=== PATIENT | female | born 1950 | race Caucasian/White ===

== ENCOUNTER 2021-04-21 10:03 | Emergency (ER) | payer MEDICARE, SELFPAY ==
--- NOTE | ~2021-04-21 | XR_ITS ---
EXAMINATION: XR chest 1V portable DATE: 04/21/2021 10:41 INDICATION: Abdominal pain TECHNIQUE: frontal view of the chest was obtained. COMPARISON: None FINDINGS: Biapical pleural-parenchymal scarring. Small calcified nodule in the lateral left lower lung zone con sistent with old granulomatous disease. No other airspace opacities, pulmonary edema, pleural effusio n or pneumothorax. The cardiomediastinal silhouette is normal. Mild thoracic levocurvature. IMPRESSION: 1. Biapical pleural-parenchymal scarring. No acute cardiopulmonary disease. Reviewed, dictated and finalized at location A. [employer]
--- NOTE | ~2021-04-21 | CT_ITS ---
EXAMINATION: CT abdomen pelvis w con EXAM DATE: 04/21/2021 11:27 INDICATION: Right lower quadrant pain. Nausea and vomiting. TECHNIQUE: Spiral CT of the abdomen and pelvis was performed following intravenous injection of 100 m L Omnipaque 350. Axial, coronal and sagittal images of the abdomen and pelvis were reviewed. The do se-length product (DLP) for this examination was 737.40 mGy-cm. The exposure was tailored according to patient size (auto mA exposure control), and iterative reconstruction (ASIR) was used as additiona l dose reduction technique. There is no prior study for comparison. FINDINGS: The liver, spleen, adrenal glands and pancreas are unremarkable. Gallbladder is unremarkab le. No biliary obstruction. Portal and splenic veins are patent. Kidneys enhance symmetrically. T here is no hydronephrosis. The uterus is not identified and has likely been surgically resected. T he bladder is unremarkable. There is no retroperitoneal or pelvic lymphadenopathy. There is mild s cattered arteriosclerotic disease. There is moderate sigmoid colonic diverticulosis. Moderate amount of perisigmoid inflammation and rec tosigmoid wall edema, could be acute uncomplicated diverticulitis and/or colitis. No perforation or a bscess. Appendix not identified. The stomach and small bowel are unremarkable. There is expected jimmie unt of colonic stool. No free intraperitoneal gas. The heart is normal in size. There are no per icardial or pleural effusions. The lung bases are unremarkable. There are no osteoblastic or osteol ytic lesions identified. Mild lumbar levoscoliosis. IMPRESSION: 1. Acute uncomplicated sigmoid diverticulitis and/or colitis. Reviewed, dictated and finalized at location A. [employer]
[2021-04-21 10:09] VITALS: BP 141/66; PULSE 70; RESP 16; TEMP 36.7; O2SAT 98
[2021-04-21 10:50] LABS: Basophils Absolute Auto 0.1 K/mm3 (0.0-0.1); Basophils Percent Auto 1.1 % (0.2-1.2); Eosinophils Absolute Auto 0.2 K/mm3 (0-0.3); Eosinophils Percent Auto 2.6 % (0-4.4); Hematocrit 38.7 % (37.0-47.0); Hemoglobin 13.1 g/dL (12.0-15.0); Immature Granulocyte Absolute 0.02 K/mm3 (0.00-0.031); Immature Granulocyte Percent A 0.2 % (0-0.5); Lymphocytes Absolute Auto 1.71 K/mm3 (0.9-3.2); Lymphocytes Percent Auto 20.4 % (18.3-44.2); Mean Corpuscular HGB Conc 33.9 g/dl (32-36); Mean Corpuscular Hemoglobin 30.8 pg (26-34); Mean Corpuscular Volume 91.1 fl (80-100); Mean Platelet Volume 11.6 fl (7.4-10.4); Monocytes Absolute Auto 0.7 K/mm3 (0.1-0.6); Monocytes Percent Auto 7.9 % (2.6-8.5); Neutrophils Absolute Auto 5.7 K/mm3 (1.3-6.7); Neutrophils Percent Auto 67.8 % (45.5-73.1); Platelet Count Result 246 k/mm3 (150-375); Red Blood Count 4.25 M/mm3 (4.2-5.4); Red Cell Distribution Width 13.6 % (11.5-14.5); White Blood Count 8.4 K/mm3 (4.5-10.0)
[2021-04-21] MEDS: ONDANSETRON INJ 4 MG/2 ML VIAL IV PUSH (10:50)
[2021-04-21] MEDS: SODIUM CHLORIDE 0.9% IV 1,000 ML 999 ML IV CONT (10:50)
[2021-04-21] MEDS: diphenhydrAMINE HCl INJ 50 MG/ML VIAL 25 MG IV PUSH (10:50)
[2021-04-21 10:52] LABS: Add Urine Microscopic? NO; Appearance Urine Clear (Clear); Bilirubin Urine Negative (Negative); Blood Urine Negative (Negative); Color Urine Yellow (Yellow); Glucose Urine UA Negative (Negative); Ketones Urine Negative (Negative); Leukocyte Esterase Ur Negative LEU/UL (Negative); Nitrate Urine Negative (Negative); Protein Urine Negative (Negative); Specific Grav Ur 1.013 (1.001-1.035); Urobilinogen Urine Negative mg/dL (<2.0)
[2021-04-21 10:58] LABS: Alanine Aminotransferase 19 U/L (4-35); Albumin Level 4.3 g/dL (3.5-5.1); Alkaline Phosphatase 89 U/L (38-126); Anion Gap 9 mmol/L (8-16); Aspartate Amino Transferase 31 U/L (14-36); Bilirubin,Total 0.5 mg/dL (0.2-1.3); Blood Urea Nitrogen 19 mg/dL (7-17); Calcium 9.1 mg/dL (8.4-10.2); Carbon Dioxide 27 mmol/L (22-30); Chloride 100 mmol/L (98-107); Estimated CRCL calculation 65 ml/min; Estimated Glomerular Filt Rate > 60; Glucose 102 mg/dL (65-110); Lipase 81 U/L (23-300); Potassium 4.1 mmol/L (3.4-5.0); Sodium 136 mmol/L (137-145)
--- NOTE | 2021-04-21 11:20 | ED.GENADULT ---
HPI - General Adult General Chief complaint: Abdominal Pain Stated complaint: stomach issue Time Seen by Provider: 04/21/21 10:07 Source: patient Mode of arrival: ambulatory Limitations: no limitations History of Present Illness HPI narrative: Patient is a 70-year-old female presenting with chief complaint of right lower quadrant umbilical discomfort that has been increasing over the past 5 days. Patient reports the pain is intermittent and sharp in nature. Patient reports that when it is present it causes her to double over. Patient reports she had one episode of vomiting with the pain this morning. She denies any urinary symptoms or vaginal bleeding or discharge. Patient reports that she had an appendectomy and partial hysterectomy performed in the . Patient also reports she was diagnosed with diverticulitis in January and February. Patient reports her pain at this time is in a different location. Patient reports that she had a bowel movement this morning but they were softer in nature. She denies any blood or mucus to her stools. Denies any fever, chills, chest pain or shortness of breath. Related Data Home Medications Medication Instructions Recorded Confirmed fluticasone furoate-vilanterol 1 inh INHALATION DAILY 04/21/21 [Breo Ellipta] Allergies Allergy/AdvReac Type Severity Reaction Status Date / Time shellfish derived Allergy Dyspnea / Verified 04/21/21 10:08 SOB Review of Systems Review of Systems: CONSTITUTIONAL: Denies fever, chills, or sweats. EYES: Denies visual changes, redness, or discharge. ENT: Denies rhinorrhea, congestion, sore throat, or otalgia. CARDIOVASCULAR: Denies chest pain, palpitations, or edema. RESPIRATORY: Denies cough or dyspnea. GASTROINTESTINAL: Reports intermittent sharp abdominal pain, nausea, vomiting, denies diarrhea. GENITOURINARY: Denies dysuria or hematuria. SKIN: Denies rash or itching. MUSCULOSKELETAL: Denies back pain, joint pain, or myalgia. NEUROLOGIC: Denies headache, numbness, dizziness, or weakness. PSYCHIATRIC: Denies anxiety or depression. Exam Narrative: GENERAL: Well-appearing, well-nourished, and in no acute distress presently. HEAD: Normocephalic, atraumatic. CHEST: Clear to auscultation. No respiratory distress. No wheezes rales or rhonchi HEART: Regular rate and rhythm. ABDOMEN: Soft, tender with palpation of right lower quadrant and umbilical area, normal active bowel sounds. EXTREMITIES: Normal range of motion. SKIN: Warm, dry, no rash. NEURO: No focal deficits. Alert and oriented x3. PSYCH: Normal mood and affect. Course Vital Signs Vital signs: Vital Signs Temperature 98.1 F 04/21/21 10:09 Pulse Rate 70 04/21/21 10:09 Respiratory Rate 16 04/21/21 10:09 Blood Pressure 141/66 H 04/21/21 10:09 Pulse Oximetry 98 04/21/21 10:09 Temperature 98.1 F 04/21/21 10:09 Pulse Rate 52 L 04/21/21 12:23 Respiratory Rate 18 04/21/21 12:23 Blood Pressure 115/61 04/21/21 12:23 Pulse Oximetry 100 04/21/21 12:23 Medical Decision Making MDM Narrative Medical decision making narrative: Patient reports she has not had a pain presently. Patient reports that she is allergic to iodine and shellfish. Patient is concerned about receiving IV contrast. Patient will be given 25 mg of Benadryl as pretreatment, but I have contacted radiology department and is allergy is not an issue with the present contrast. Patient CT found uncomplicated diverticulitis. Patient will be started on Augmentin and instructed to follow-up with her primary care or GI specialist for further investigation if her symptoms persist. Patient instructed to return to emergency department if she has any worsening or emergent symptoms. Patient given [place] for breakthrough pain. Patient is stable. Patient not having nausea or vomiting emergency department. Patient pain is controlled without administration of pain medications in the ER?declined by patient.
[2021-04-21 11:42] VITALS: BP 118/53; PULSE 60; RESP 18; O2SAT 100
[2021-04-21 12:23] VITALS: BP 115/61; PULSE 52; RESP 18; O2SAT 100
== END 2021-04-21 12:24 | disposition home or self-care (01) ==
PROVIDERS: Physician Assistant; Emergency Provider Family Medicine; PCP Internal Medicine
DX: K57.32 Diverticulitis of large intestine without perforation or abscess without bleeding (principal)
CPT/HCPCS: 36415; 71045; 74177; 80053; 81003; 83690; 85025; 96361; 96374; 96375; 99284; J1200; J2405; J7030; Q9967

== ENCOUNTER 2022-01-25 17:25 | Emergency (ER) | payer MEDICARE, SELFPAY ==
[2022-01-25] VITALS (8 sets, daily range): BP systolic 130–136; BP diastolic 60–69; PULSE 68–96; RESP 16–24; TEMP 37.2–37.8; O2SAT 95–99
--- NOTE | ~2022-01-25 | XR_ITS ---
EXAMINATION: XR chest 2V Exam Date/Time: 01/25/2022 21:09 CDT HISTORY: fever/WEAKNESS X TODAY, HX ASTHMA, NO CARDIAC HX Comparison: 04/21/2021. RESULT: Lines, tubes, and devices: None. Lungs and pleura: Biapical pleural scarring. Scattered reticulonodular opacities. Cardiomediastinal silhouette: Stable. Other: No acute osseous or upper abdominal finding. IMPRESSION: Pulmonary opacities may reflect bronchiolitis or atypical infection. Reviewed, dictated and finalized at location K.
--- NOTE | ~2022-01-25 | CT_ITS ---
EXAMINATION: CTA brain carotid DATE: 01/25/2022 22:56 INDICATION: recent neck manipulation w/ weakness/spine pain TECHNIQUE: Computed tomographic angiography (CTA) of the head was performed without and with 100 mL O mnipaque-350 intravenous contrast. CTA of the neck was performed with intravenous contrast. The dose- length product was 1684.01 mGy-cm. Maximum intensity projection and volume rendered 3D-reconstruction s were created by the technologist on a separate workstation. COMPARISON: None. FINDINGS: CT BRAIN: No acute large vessel infarct, intracranial hemorrhage, mass, or hydrocephalus. CTA HEAD: No large vessel occlusion, aneurysm, high flow vascular malformation, nidus or extravasation. CTA NECK: Aortic arch and proximal great vessels: Minimal calcifications at the visualized aortic arch. Right common carotid, carotid bifurcation, and internal carotid artery: No atherosclerotic plaque.The re is 0% stenosis of the proximal right internal carotid artery relative to normal distal artery lume n diameter (NASCET criteria). Left common carotid, carotid bifurcation, and internal carotid artery: No atherosclerotic plaque.Ther e is 0% stenosis of the proximal left internal carotid artery relative to normal distal artery lumen diameter (NASCET criteria). Vertebral arteries: No significant plaque or stenosis. Other findings: Bilateral lens replacements. Cervical spondylosis. Biapical pleural scarring. The rig ht palatine tonsil is slightly enlarged, with heterogeneous enhancement. IMPRESSION: No large vessel occlusion. No significant carotid or vertebral stenosis. No evidence of carotid or ve rtebral artery injury. Asymmetrically enlarged and heterogeneously enhancing right palatine tonsil, c orrelate for findings of infection. Reviewed, dictated and finalized at location K. IMPRESSION: No large vessel occlusion. No significant carotid or vertebral stenosis. No [place] dence of carotid or vertebral artery injury. Asymmetrically enlarged and hetero geneously enhancing right palatine tonsil, correlate for findings of infection.
--- NOTE | 2022-01-25 17:27 | ECG_ITS ---
Measurements Intervals [place] Rate: 83 P: 55 HI: 146 QRS: 31 QRSD: 143 T: 25 QT: 361 QTc: 426 Interpretive Statements SINUS RHYTHM POSSIBLE LEFT ATRIAL ENLARGEMENT [-0.1mV P WAVE IN V1/V2] RIGHT BUNDLE BRANCH BLOCK [120+ ms QRS DURATION, UPRIGHT V1, 40+ ms S IN I/aVL/V4/V5/V6] NO PREVIOUS ECG AVAILABLE FOR COMPARISON Electronically Signed On 01-26-2022 17:11:21 CDT by Shai Albert M.D.
[2022-01-25 18:39] LABS: Basophils Absolute Auto 0.1 K/mm3 (0.0-0.1); Basophils Percent Auto 0.9 % (0.2-1.2); Eosinophils Percent Auto 0.6 % (0-4.4); Hematocrit 38.2 % (37.0-47.0); Hemoglobin 12.4 g/dL (12.0-15.0); Immature Granulocyte Absolute 0.02 K/mm3 (0.00-0.031); Immature Granulocyte Percent A 0.3 % (0-0.5); Lymphocytes Absolute Auto 0.96 K/mm3 (0.9-3.2); Lymphocytes Percent Auto 14.8 % (18.3-44.2); Mean Corpuscular HGB Conc 32.5 g/dl (32-36); Mean Corpuscular Hemoglobin 29.7 pg (26-34); Mean Corpuscular Volume 91.4 fl (80-100); Mean Platelet Volume 11.3 fl (7.4-10.4); Monocytes Absolute Auto 1.2 K/mm3 (0.1-0.6); Monocytes Percent Auto 18.2 % (2.6-8.5); Neutrophils Absolute Auto 4.2 K/mm3 (1.3-6.7); Neutrophils Percent Auto 65.2 % (45.5-73.1); Platelet Count Result 228 k/mm3 (150-375); Red Blood Count 4.18 M/mm3 (4.2-5.4); Red Cell Distribution Width 14.6 % (11.5-14.5); White Blood Count 6.5 K/mm3 (4.5-10.0)
[2022-01-25 18:51] LABS: Alanine Aminotransferase 34 U/L (6-35); Albumin Level 4.4 g/dL (3.5-5.1); Alkaline Phosphatase 77 U/L (38-126); Anion Gap 8 mmol/L (8-16); Aspartate Amino Transferase 38 U/L (14-36); Bilirubin,Total 0.3 mg/dL (0.2-1.3); Blood Urea Nitrogen 20 mg/dL (7-17); Calcium 8.8 mg/dL (8.4-10.2); Carbon Dioxide 27 mmol/L (22-30); Chloride 99 mmol/L (98-107); Estimated CRCL calculation 51 ml/min; Estimated Glomerular Filt Rate > 60; Glucose 99 mg/dL (65-110); Potassium 3.6 mmol/L (3.4-5.0); Sodium 134 mmol/L (137-145)
[2022-01-25 21:19] LABS: Appearance Urine Clear (Clear); Bilirubin Urine Negative (Negative); Blood Urine Negative (Negative); Color Urine Yellow (Yellow); Glucose Urine UA Negative (Negative); Ketones Urine Negative (Negative); Leukocyte Esterase Ur Negative LEU/UL (Negative); Nitrate Urine Negative (Negative); Protein Urine Negative (Negative); Specific Grav Ur 1.025 (1.001-1.035); Urobilinogen Urine 0.2 mg/dL (<2.0); pH Urine 5.5 (5.0-9.0)
[2022-01-25 21:20] LABS: Add Urine Microscopic? NO
[2022-01-25] MEDS: SODIUM CHLORIDE 0.9% IV 1,000 ML 999 ML IV CONT (22:19)
[2022-01-25 23:52] LABS: Influenza A QL RT-PCR Negative (Negative); Influenza B QL RT-PCR Negative (Negative); SARS-CoV-2 RNA PCR Positive
[2022-01-26 00:03] VITALS: PULSE 68; RESP 18; O2SAT 92
[2022-01-26 00:15] VITALS: PULSE 66; RESP 18; O2SAT 96
--- NOTE | 2022-01-26 05:47 | ED.FEVER ---
HPI - Fever General Chief Complaint: Fever Stated Complaint: blacking out, vision loss, resolved Time Seen by Provider: 01/25/22 20:38 History of Present Illness HPI Narrative: Patient states that 2 days ago she was doing some back exercises and feels like she stretched her neck too much, since then she states that she has been feeling overall weak and tired and like she wants to sleep all day, she called her doctor today because she found herself to have a fever and he told her to go in to the hospital if she was still feeling poorly. She states that she has a very minimal cough but this is chronic for her for months, and a mild sore throat which is also been around for years, denies any dysuria or difficulty currently, nausea or vomiting, chest pain. Also has a mild headache. No focal numbness or weakness. Related Data Home Medications Medication Instructions Recorded Confirmed fluticasone furoate 200 1 inh inhalation DAILY 04/21/21 mcg-vilanterol 25 mcg/dose inhalation powder (Breo Ellipta) Allergies Allergy/AdvReac Type Severity Reaction Status Date / Time iodine Allergy Difficulty Verified 01/25/22 22:05 Breathing shellfish derived Allergy Dyspnea / Verified 11/08/21 09:01 SOB Review of Systems Review of Systems: CONST: Fever HEENT: Sore throat and neck pain C/V: No chest pain RESP: Chronic cough GI: No nausea or vomiting : No dysuria. M/S: No joint pain. SKIN: No rash. NEURO: [Mild headache without focal numbness or weakness] PSYCH: [No depression] PMFSH Past Medical History Medical History Asthma Surgical History Surgical History Hx of appendectomy Exam Narrative: EXAMINATION OF ORGAN SYSTEMS/BODY AREAS: Constitutional: Vital signs per nursing GENERAL:[No acute distress, non-toxic appearing.] HEAD: Normal with no signs of head trauma. EYES: EOMI, conjunctiva normal ENT: Hearing grossly intact; mild pharyngeal erythema normal voice LUNGS: Nonlabored breathing. HEART: [Regular rate and rhythm] ABD: [Soft], [nontender to palpation] EXT: Normal range of motion SKIN: [No rashes or lesions.] NEURO: [Alert and oriented x 3. No gross focal sensory or strength deficits.] PSYCH: Normal affect Course Vital Signs Vital signs: Vital Signs Temperature 100.1 F H 01/25/22 18:09 Pulse Rate 96 01/25/22 18:09 Respiratory Rate 16 01/25/22 18:09 Blood Pressure 130/69 01/25/22 18:09 Pulse Oximetry 99 01/25/22 18:09 Oxygen Delivery Room Air 01/25/22 18:09 Temperature 98.9 F 01/25/22 22:31 Pulse Rate 66 01/26/22 00:15 Respiratory Rate 18 01/26/22 00:15 Blood Pressure 135/60 01/25/22 22:31 Pulse Oximetry 96 01/26/22 00:15 Oxygen Delivery Room Air 01/25/22 18:09 MDM - Fever MDM Narrative Medical decision making narrative: 71-year-old female presenting with 2 days of malaise, neck pain, she attributes this to starting after she cracked her neck, vitals notable for low-grade fever, she appears tired but otherwise no acute distress, no focal neurologic deficits, I have low concern for any sort of fracture or vascular injury however given her concern I did obtain a CT imaging which is negative, other than some tonsillitis which patient states is chronic for her but I will have her follow-up with ENT. Her COVID test is positive which I do feel is the reason for her fever and malaise, she is well-appearing here after IV fluids and Tylenol, feeling better, her oxygen has been normal here, I do feel she is stable for discharge at this time. She is given strict precautions and I have prescribed her Paxlovid and counseled her to hold her Breo ellipta for the next few days. Lab Data Result diagrams: 01/25/22 18:29 01/25/22 18:29 Labs: Lab Results 01/25/22 01/25/22 01/25/22 Range/Units 18:29 18:29 21:06 WBC 6.5
== END 2022-01-26 00:27 | disposition home or self-care (01) ==
PROVIDERS: Emergency Medicine; Emergency Provider Emergency Medicine; PCP Internal Medicine
DX: U07.1 COVID-19 (principal); M54.2 Cervicalgia; J45.909 Unspecified asthma, uncomplicated; J35.01 Chronic tonsillitis; I45.10 Unspecified right bundle-branch block; R94.31 Abnormal electrocardiogram [ECG] [EKG]; R91.8 Other nonspecific abnormal finding of lung field
CPT/HCPCS: 36415; 70496; 70498; 71046; 80053; 81003; 85025; 87040; 87420; 87502; 93005; 96361; 96374; 99284; C9803; J0131; J7030; Q9967; U0003; U0005

== ENCOUNTER 2022-08-01 10:00 | Outpatient (RCR) | payer MEDICARE, SELFPAY ==
--- NOTE | 2022-07-27 17:16 | PTOPEVAL1 ---
Assessment and note entered by Lala Arnold DPT Evaluation Information Assessment Status Evaluation Subjective Information Pt reports urinary incontinence for 6 months to a year. Is now happening daily, sometimes multiple times a day. Notices it with activities like bending over, walking, coughing, sneezing. Amount is variable. Wears a pad at all times. Urinates 3- 4 times a day and 1 time at night. Can hold urine up to a couple hours. Denies pain with urination. BM usually 1 time a day until the past year, going more frequently due to a magnesium supplement. No pain with BM. Does report some pelvic pain that feels deep. Pain does not occur daily and seems random. Describes as a pin prick. Pt denies history of pain with sex, tampon, or pelvic exam. Hysterectomy in her 20's. Pt has been 2 times with 2 deliveries, vaginal for both without complications. Goal for therapy: decrease incontinence. No return visit to MD scheduled. Reported Pain Level Pain Score 0: Self Report Assessment PT Clinical Summary The patient is presenting to skilled therapy with a progressing history of urinary incontinence. She presents with decreased core and hip strength and likely decreased pelvic floor strength (to be assessed next visit per patient request). These impairments and contributing to her frequent incontinence and pad use. She will highly benefit from therapy to address these impairments and safely return to prior level of function. Plan of Care Interventions Hot Pack/Cold Pack,Manual Therapy,Neuro Re- education,Patient/Caregiver Education,Therapeutic Activities,Therapeutic Exercise,Self-Care/Home Management PT Services Indicated Yes Treatment Frequency and 1 time a week for 6 weeks Duration These treatments will address the objective and functional deficits as defined above. The patient will be advanced safely and appropriately in order for the patient to progress towards his/her prior level of function. Additional exercises will be introduced and as well as a comprehensive home exercise program upon discharge, if needed, ?to ensure carryover of functional gains achieved in the clinic. This treatment plan has been reviewed and agreement upon by the patient.
--- NOTE | 2022-08-22 14:27 | PTOPDC ---
Assessment and note entered by Lala Arnold DPT Evaluation Information Assessment Status Discharge - Pt Not Present Subjective Information Assessment PT Clinical Summary The patient is self discharging from therapy. States she will call in the future when she is ready. Plan of Care PT Services Indicated No
== END 2022-08-31 10:20 | disposition home or self-care (01) ==
LOC: ANHPT 10:00
PROVIDERS: PCP Internal Medicine; Visit Provider Physician Assistant
DX: R32 Unspecified urinary incontinence (principal)
CPT/HCPCS: 97110; 97112; 97161